=== PATIENT | female | born 2000 | race Caucasian/White ===

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

== ENCOUNTER 2021-06-02 10:15 | Emergency (ER) | payer OTHER, MEDICAID ==
[2021-06-02 10:25] VITALS: BP 116/69
--- NOTE | 2021-06-02 11:15 | ED Physician Documentation ---
PD HPI UPPER EXT INJURY - Stated complaint Stated Complaint: LT INDEX FINGER LAC - Chief complaint Chief Complaint: Laceration - History obtained from History obtained from: Patient - History of Present Illness Location: Left, Finger (index) Type of injury: Laceration Where injury occurred: Work Timing - onset: Yesterday Timing - duration: Days (1) Timing - details: Abrupt onset, Still present Improved by: Rest, Dressing Worsened by: Moving, Palpating Associated symptoms: No: Weakness, Numbness, Tingling Contributing factors: No: Anticoagulated Similar symptoms before: Has not had sx before Recently seen: Not recently seen - Additonal information Additional information: 20-year-old female was at work when she cut the tip of her left index finger with the large knife and she was able to control bleeding she is coming to the emergency department today with very sensitive tip to her finger with gauze that is adhering to it every time she pulls it off she has severe pain. Review of Systems Constitutional: denies: Fever Nose: denies: Congestion Throat: denies: Sore throat Respiratory: denies: Cough GI: denies: Vomiting Skin: reports: Laceration (s) PD PAST MEDICAL HISTORY - Past Surgical History Past Surgical History: No - Present Medications Home Medications: Ambulatory Orders Medication Instructions Recorded Confirmed No Known Home Medications 06/02/21 06/02/21 - Allergies Allergies/Adverse Reactions: Allergies Allergy/AdvReac Type Severity Reaction Status Date / Time No Known Drug Allergies Allergy Verified 06/02/21 10:24 - Social History Does the pt smoke?: No Smoking Status: Never smoker Does the pt drink ETOH?: No PD ED PE NORMAL - Vitals Vital signs reviewed: Yes (Normal) - General General: Alert and oriented X 3, No acute distress, Well developed/nourished - HEENT HEENT: Atraumatic, PERRL, EOMI - Respiratory Respiratory: No respiratory distress - Derm Derm: Normal color, Warm and dry, No rash - Extremities Extremities: No deformity, Other (There is a skin of of skin off of the left index fingertip on the radial surface. The bleeding is controlled with direct pressure and there is a piece of gauze stuck to the wound this is removed with severe pain to the patient there is not excessive bleeding. The wound is approximately 1 cm round.) Results - Vitals Vitals: Vital Signs - 24 hr 06/02/21 10:21 Temperature 36.6 C Heart Rate 52 L Respiratory 14 Rate Blood Pressure 116/69 O2 Saturation 97 Oxygen O2 Source Room air PD MEDICAL DECISION MAKING - ED course Complexity details: considered differential, d/w patient ED course: The gauze was removed from the patient's finger with pain to the patient this is replaced with Surgifoam and a dressing. I have instructed the patient to replace the Surgifoam in about 2 days time to wear a dressing over it and keep the area clean and dry. She will need about 1 week off from work. She works as a cook. Departure - Departure Disposition: 01 Home, Self Care Clinical Impression: Avulsion of skin of finger Qualifiers: Encounter type: initial encounter Qualified Code(s): S61.209A - Unspecified open wound of unspecified finger without damage to nail, initial encounter Condition: Stable Instructions: ED Avulsion Dermal Follow-Up: [facility] [Provider Group] Forms: Activity restrictions
== END 2021-06-02 11:24 | disposition home or self-care (01) ==
LOC: ED 10:15
DX: S61.209A Unspecified open wound of unspecified finger without damage to nail, initial encounter (principal); W26.0XXA Contact with knife, initial encounter; Y99.0 Civilian activity done for income or pay
CPT/HCPCS: 1040M; 99281; 99282

== ENCOUNTER 2022-02-26 21:00 | Outpatient (CLI) | payer MEDICAID | END 2022-02-26 21:01 | disposition EMS.NT | LOC: EMS 21:00 | DX: M25.569 Pain in unspecified knee (principal); V58.5XXA Driver of pick-up truck or van injured in noncollision transport accident in traffic accident, initial encounter; Y92.410 Unspecified street and highway as the place of occurrence of the external cause ==

== ENCOUNTER 2023-01-30 23:43 | Emergency (ER) | payer MEDICAID ==
[2023-01-30 23:54] VITALS: BP 118/62
== END 2023-01-31 00:55 | disposition home or self-care (01) ==
LOC: ED 23:43
DX: Z53.21 Procedure and treatment not carried out due to patient leaving prior to being seen by health care provider (principal)